=== PATIENT | female | born 1975 | race Two or more races ===

== ENCOUNTER 2018-11-04 15:52 | Emergency (ER) | payer OTHER ==
[~2018-11-04] VITALS: Ht 160 cm; Wt 75.3 kg
[~2018-11-04 15:52] MED LIST: CLEOCIN HCL300 MG; FIORICET 50-321 EACH PO; RELPAX40 MG PO; TUSICOF LIQUID120 ML PO; ULTRACET PO; ZANTAC300 MG
== END 2018-11-04 17:28 | disposition home or self-care (01) ==
LOC: ER 15:52
DX: B34.9 Viral infection, unspecified (principal); G43.909 Migraine, unspecified, not intractable, without status migrainosus

== ENCOUNTER 2022-01-05 01:35 | Inpatient (IN) | payer OTHER ==
[~2022-01-05] VITALS: Ht 162.6 cm; Wt 84.8 kg
[2022-01-05] MEDS ORDERED: COZAAR50 MG (01:58)
[2022-01-05] MEDS ORDERED: XANAX XR2 MG (01:59)
[2022-01-05] MEDS ORDERED: PROZAC20 MG (01:59)
[2022-01-05] MEDS ORDERED: NEURONTIN600 M1 (02:00)
[2022-01-05] MEDS ORDERED: PRILOSEC OTC20 MG (02:01)
[2022-01-05] MEDS ORDERED: PEPCID AC20 MG (02:01)
--- NOTE | 2022-01-05 02:18 | NUR ---
PTE ALERTA Y ORIENTADA EN ROMI RALPH ESFERAS, SE OBSERVA LA MISMA SOMNOLIENTA, LLEGA EN SILLA DE JESUS, REFIERE DOLOR EN EL BRAZO LT, PECHO Y ABDOMINAL, PARA LO CUAL RECIBIO TRATAMIENTO Y ESTUVO ADMITIDA EN [facility], REFIERE FUE YUSRA DE MUSHTAQ HACE 5 MILLAN Y AUN NO ROSE GRACIELA, REFIERE CONTINUA CON EL DOLOR ABDOMINAL, DISTENCION Y SANGRADO RECTAL. SE REALIZA EKG Y SE UBICA EN AREA DE OBSERVACION.
--- NOTE | 2022-01-05 03:42 | NUR ---
PTE EVALUADA POR EL DR RICHARD QUIROZ [place]. MS M GARCIA ORIENTA SOBRE EL [place], LO CUAL REFIERE ENTENDER, REALIZA PRUEBAS DE LABORATORIO Y ADMINISTRA MEDICAMENTOS TAIWO ORDEN MEDICA Y SIGUIENDO MEDIDAS ASEPTICAS.
--- NOTE | 2022-01-05 07:21 | NUR ---
SE RECIBE PTE ALERTA Y ORIENTADA EN KENNETH BAJA CON BARANDAS ELEVADAS POR SEGURIDAD. SE OBSERVA PTE RECIBIENDO IV FLUIDS. AREA DE VENOPUNCION DANILO DE EDEMA Y ERITEMA. PTE NPO. PEND OCCULT BLOOD, FECAL LEUKOCYTES, Y LECTURA DE CT. SE MANITENE BAJO OBSERVACION POR CAMBIOS SIGNIFICATIVOS
== END 2022-01-09 15:07 | disposition home or self-care (01) | DRG 392 ==
LOC: ER 01:35 → SEC-K 17:54 → SURG 17:54 → SURH 18:39 → SURG 22:33
PROVIDERS: ADMIT Internal Medicine; ATTEND Internal Medicine
PROC: BW21ZZZ Computerized Tomography (CT Scan) of Abdomen and Pelvis (ICD-10-PCS; principal; 2022-01-05)
DX: R14.0 Abdominal distension (gaseous) (principal); R10.13 Epigastric pain; I10 Essential (primary) hypertension

== ENCOUNTER 2022-10-07 19:30 | Emergency (ER) | payer OTHER ==
[~2022-10-07] VITALS: Ht 160 cm; Wt 87.1 kg
[~2022-10-07 19:30] MED LIST changes: +COZAAR50 MG; +NEURONTIN600 M1; +PEPCID AC20 MG; +PRILOSEC OTC20 MG; +PROZAC20 MG; +XANAX XR2 MG
[2022-10-07] MEDS ORDERED: DICLOFENAC SODI75 MG PO (22:25)
[2022-10-07] MEDS ORDERED: NORFLEX100MG PO (22:25)
== END 2022-10-07 22:38 | disposition home or self-care (01) ==
LOC: ER 19:30
DX: M54.50 Low back pain, unspecified (principal); W19.XXXA Unspecified fall, initial encounter; Y93.9 Activity, unspecified; Y92.9 Unspecified place or not applicable

== ENCOUNTER 2022-11-27 22:12 | Emergency (ER) | payer OTHER ==
[~2022-11-27] VITALS: Ht 160 cm; Wt 89.4 kg
[~2022-11-27 22:12] MED LIST changes: +DICLOFENAC SODI75 MG PO; +NORFLEX100MG PO
== END 2022-11-28 05:02 | disposition home or self-care (01) ==
LOC: ER 22:12
DX: S93.402A Sprain of unspecified ligament of left ankle, initial encounter (principal); W18.30XA Fall on same level, unspecified, initial encounter; Y93.9 Activity, unspecified; Y92.018 Other place in single-family (private) house as the place of occurrence of the external cause; Y99.9 Unspecified external cause status; Z88.8 Allergy status to other drugs, medicaments and biological substances; I10 Essential (primary) hypertension; C80.1 Malignant (primary) neoplasm, unspecified

== ENCOUNTER 2024-02-04 15:55 | Emergency (ER) | payer OTHER ==
[~2024-02-04] VITALS: Ht 160 cm; Wt 86.2 kg
[2024-02-04] MEDS ORDERED: TRAMADOL HCL 50 MG TABLET PO ONE (17:30)
[2024-02-04] MEDS ORDERED: ORPHENADRINE CITRATE 30 MG/ML AMPUL IM ONE (17:30)
[2024-02-04] MEDS ORDERED: DEXAMETHASONE SODIUM PHOSPHATE 4 MG/ML VIAL IM ONE (17:30)
[2024-02-04] MEDS ORDERED: DEXAMETHASONE SODIUM PHOSPHATE 4 MG/ML VIAL ONE ×2 (17:31→17:32)
[2024-02-04] MEDS ORDERED: ORPHENADRINE CITRATE 30 MG/ML AMPUL ONE (17:31)
[2024-02-04] MEDS ORDERED: FAMOtidine 40 MG TABLET PO ONE (19:00)
[2024-02-04] MEDS ORDERED: FAMOtidine 200mg/20ml VIAL ONE (19:10)
[2024-02-04] MEDS ORDERED: FAMOtidine 10 MG/ML (4ML VIAL) IV ONE (19:15)
[2024-02-04] MEDS ORDERED: MEDROLPACK PO (19:54)
[2024-02-04] MEDS ORDERED: CYCLOBENZAPRINE10 MG PO (19:54)
[2024-02-04] MEDS ORDERED: MORPHINE SULFATE 4 MG/ML VIAL IV ONE (20:00)
== END 2024-02-04 21:48 ==
LOC: ER 15:56
DX: M54.16 Radiculopathy, lumbar region (principal); M51.26 Other intervertebral disc displacement, lumbar region; I10 Essential (primary) hypertension; Z87.09 Personal history of other diseases of the respiratory system; Z91.040 Latex allergy status

== ENCOUNTER 2024-04-14 18:31 | Emergency (ER) | payer OTHER ==
[~2024-04-14] VITALS: Ht 160 cm; Wt 86.2 kg
[~2024-04-14 18:31] MED LIST changes: +CYCLOBENZAPRINE10 MG PO; +MEDROLPACK PO
[2024-04-14] MEDS ORDERED: COZAAR100 MG PO (18:36)
[2024-04-14] MEDS ORDERED: XANAX2 MG PO (18:37)
[2024-04-14] MEDS ORDERED: PROZAC20 MG PO (18:37)
[2024-04-14] MEDS ORDERED: KETOROLAC TROMETHAMINE 30 MG VIAL IV ONE (19:15)
[2024-04-14] MEDS ORDERED: FUROsemide 40 MG/4 ML VIAL IV ONE (19:15)
[2024-04-14 19:39] LABS: HEMATOCRIT 35.8 % (36.0-45.00); HEMOGLOBIN 12.1 g/dL (12.0-15.00); MEAN CELL VOLUME 87.1 fL (80.00-100.00); MEAN CORPUSCULAR HEMOGLOBIN 29.3 pg (27.00-32.0); MEAN CORPUSCULAR HGB CONC 33.7 g/dl (32.0-36.0); PLATELET COUNT 375 K/uL (150-450); RED BLOOD COUNT 4.11 M/uL (4.00-6.00); RED CELL DISTRIBUTION WIDTH 14.4 % (11.5-14.5)
[2024-04-14 19:55] LABS: ALBUMIN 3.5 gm/dL (3.4-5.0); BILIRUBIN TOTAL 0.38 mg/dL (0.3-1.2); CALCIUM 9.2 mg/dL (8.5-10.1); CREATININE SERUM 0.7 mg/dL (0.55-1.02); GFR 89.31; GLOBULINA 3.5 G/DL (2.4-3.5); POTASSIUM 3.83 mEq/L (3.5-5.1)
[2024-04-14 20:36] LABS: PH,URINE 6.5 (5.0-8.0); URINE APPEARANCE Clear; URINE BILIRRUBIN Negative (NEGATIVE); URINE BLOOD Negative; URINE COLOR Yellow; URINE EPITHELIAL CELLS 5.4 uL (0.0-38.8); URINE GLUCOSE Negative (NEGATIVE); URINE KETONE Negative (NEGATIVE); URINE LEUKOCYTE Negative; URINE NITRATE Negative; URINE PROTEIN Negative (NEGATIVE); URINE WBC 3.8 uL (0.0-23.2)
[2024-04-14 20:37] LABS: URINE RBC 1.3 uL (0.0-20.8)
[2024-04-14] MEDS ORDERED: LASIX20 MG PO (22:15)
== END 2024-04-14 22:31 | disposition home or self-care (01) ==
LOC: ER 18:33
PROVIDERS: General Practice
DX: R60.0 Localized edema (principal); R10.31 Right lower quadrant pain; I10 Essential (primary) hypertension; Z91.040 Latex allergy status; Z20.822 Contact with and (suspected) exposure to COVID-19